=== PATIENT | female | born 1990 | race Caucasian/White ===

== ENCOUNTER 2016-10-28 22:14 | Emergency (ER) | payer BC ==
[2016-10-28 23:27] VITALS: BP 130/71; PULSE 91; O2SAT 97
[2016-10-28] MEDS ORDERED: KEFLEX 250 MG PO ONE (23:49)
[2016-10-28] MEDS ORDERED: KEFLEX 500 MG ONE (23:53)
--- NOTE | 2016-10-28 23:56 | ERPHSYRPT ---
- History of Present Illness Time Seen by Provider: 10/28/16 23:44 Source: patient Exam Limitations: no limitations Patient Subjective Stated Complaint: Pt here for right great toe pain since August. Sts she has seen her PCP for this multiple times, last visit was 3 weeks ago and was told they could not do anything for it. Pt sts that pain is still there 2/10 without shoe, increases while wearing shoe. Triage Nursing Assessment: Pt alert, oriented, answers all questions appropriately. Pt ambulatory to tx room, steady gait noted. Redness noted to nail bed at base of right great toe. Resps non-labored. Skin p/w/d. Physician History: PT STATES SHE HAS HAD REDNESS AND PAIN IN HER RIGHT LARGE TOE FOR THE PAST 2 MONTHS, WENT TO NURSE PRACTITIONER 3 WEEKS AGO WHO REMOVED A PIECE OF TOENAIL. PT HAS NOT BEEN ON ANY ORAL ANTIBIOTICS. PT DENIES FEVER, DENIES RECENT INJURY TO THE RIGHT FOOT, DENIES NUMBNESS OF THE RIGHT TOES. Allergies/Adverse Reactions: No Known Drug Allergies Allergy (Unverified 10/25/15 00:39) Home Medications: Lamotrigine 150 mg PO BID 04/03/15 [History] Hx Tetanus, Diphtheria Vaccination/Date Given: No Hx Influenza Vaccination/Date Given: Yes Hx Pneumococcal Vaccination/Date Given: No Immunizations Up to Date: Yes - Review of Systems Musculoskeletal: Other (RIGHT LARGE TOE REDNESS, PAIN AND SWELLING) - Past Medical History Pertinent Past Medical History: Yes Neurological History: Seizures Respiratory History: Asthma - Past Surgical History Past Surgical History: Yes Other Surgical History: LEFT ELBOW - Social History Smoking Status: Never smoker Exposure to second hand smoke: No Drug Use: none Patient Lives Alone: No - Female History Hx Last Menstrual Period: 10/12/16 - Nursing Vital Signs Nursing Vital Signs: Initial Vital Signs Temperature 97.3 F Temperature Source Oral Pulse Rate 91 Respiratory Rate 18 Blood Pressure [Right Arm] 130/71 Pain Intensity 2 - Physical Exam General Appearance: alert Hips Exam: right: normal range of motion Legs Exam: right leg: normal range of motion Knees Exam: right knee: normal range of motion Ankle Exam: right ankle: normal range of motion Foot Exam: right foot: normal range of motion, other (RIGHT LARGE TOE HAS AN ERYTHEMATOUS, MILDLY EDEMATOUS AND TENDER 1 CM DIAMETER NODULE AT THE BASE OF THE NAILBED WITHOUT EXUDATE.) Neuro/Tendon Exam: normal sensation Mental Status Exam: alert, cooperative SpO2 Interpretation: normal SpO2: 97 Oxygen Delivery: Room Air - Course Nursing assessment & vital signs reviewed: Yes Ordered Tests: Medication Summary Generic Name Dose Route Start Last Admin Trade Name Freq PRN Reason Stop Dose Admin Cephalexin HCl 500 mg 10/28/16 23:49 Keflex 250 Mg PO 10/28/16 23:50 STAT ONE - Departure Time of Disposition: 23:59 Departure Disposition: Home Clinical Impression: CELLULITIS OF THE RIGHT LARGE TOE Condition: Fair Critical Care Time: No Instructions: Cellulitis -- Adult Additional Instructions: FOLLOW UP WITH CREDIT AUTHORIZER OF CHOICE. SOAK RIGHT FOOT THREE TIMES EACH DAY IN EPSOM SALTS FOR 20 MINUTES FOR THE NEXT 10 DAYS. Prescriptions: Naproxen [Naprosyn] 500 mg PO Q12H PRN PRN #20 tablet PRN Reason: Pain Cephalexin Monohydrate [Keflex] 500 mg PO TID #30 capsule
== END 2016-10-29 00:11 | disposition home or self-care (01) ==
LOC: ED 22:14
DX: L03.031 Cellulitis of right toe (principal)
CPT/HCPCS: 99283; A9270-GY

== ENCOUNTER 2019-09-26 00:07 | Emergency (ER) | payer BC ==
[2019-09-26 01:17] LABS: Absolute Neutrophil Ct (ANC) 6.48 (1.4-6.9); BASOPHIL % 0.2 % (0.0-0.4); Basophil (Absolute #) 0.02 (0-0.4); Eosinophil % 1.3 % (0.00-5.0); Eosinophil (Absolute #) 0.12 (0-0.5); Hematocrit 39.1 % (35-47); Hemoglobin 12.5 gm/dl (12.0-16.0); Lymphocytes % 18.6 % (24.0-44.0); Mean Cell Volume 85.6 fl (78-100); Mean Corpuscular Hemoglobin 27.4 pg (26-32); Mean Platelet Volume 9.4 fl (7.5-11.0); Monocyte (Absolute #) 0.83 (0.0-1.3); Monocytes % 9.1 % (0.0-12.0); Neutrophil % 70.8 % (36.0-66.0); Platelet Count 314 K/mm3 (150-450); Red Blood Count 4.57 M/mm3 (4.1-5.4); Red Cell Distribution Width 14.1 % (11.5-14.0); White Blood Count 9.2 K/mm3 (4.0-10.5)
[2019-09-26] MEDS ORDERED: Sodium Chloride 0.9% 1000 ML 1,000 ML ONE (01:20)
[2019-09-26] MEDS ORDERED: TORAdol 30 mg Injection ONE (01:20)
[2019-09-26] MEDS: Sodium Chloride 0.9% 1000 ML 1,000 ML IV STA (01:21)
[2019-09-26] MEDS: TORAdol 30 mg Injection IV ONE (01:22)
[2019-09-26 01:28] LABS: ALBUMIN 3.9 g/dL (3.5-5.0); ALKALINE PHOSPHATASE 58 U/L (38-126); ANION GAP 7.5 MEQ/L (5-15); BLOOD UREA NITROGEN 12 mg/dL (7-17); CHLORIDE 104 mmol/L (98-107); Calcium 9.3 mg/dL (8.4-10.2); Carbon Dioxide 29 mmol/L (22-30); Creatinine 1 0.71 mg/dL (0.52-1.04); Glucose 110 mg/dL (74-106); Potassium 3.8 mmol/L (3.5-5.1); SGOT/AST 22 U/L (14-36); SGPT/ALT 10 U/L (0-35); SODIUM 137 mmol/L (137-145); Total Protein 7.5 g/dL (6.3-8.2)
[2019-09-26 01:29] LABS: Appearance SLIGHTLY CLOUDY (CLEAR); Bilirubin NEGATIVE (NEGATIVE); Blood LARGE Ery/ul (0-5); Epithelial Cells FEW /HPF (FEW); Glucose NEGATIVE (NEGATIVE); Ketones NEGATIVE (NEGATIVE); Leukocyte Esterase TRACE (NEGATIVE); Mucus SLIGHT /HPF (NEGATIVE); Nitrite NEGATIVE (NEGATIVE); Protein,Urine Dip NEGATIVE (Negative); RBC 26-50 /HPF (0-2); Specific Gravity 1.008 (1.005-1.025); Urobilinogen NEGATIVE mg/dL (0-1)
[2019-09-26] MEDS ORDERED: ROCEPHIN 1 Gm-D5w 50 ml Bag** 1 G/50 ML IVPB IV ONE (02:50)
[2019-09-26] MEDS: ROCEPHIN 1 Gm-D5w 50 ml Bag** 1 G/50 ML IVPB IV STA (02:51)
--- NOTE | 2019-09-26 02:56 | ERPHSYRPT ---
- History of Present Illness Time Seen by Provider: 09/26/19 00:30 Historian: patient Exam Limitations: no limitations Patient Subjective Stated Complaint: pt states that she has pain to flank area for the past month, pt states that she has been spotting for the past month, with spotting greater in the am pt states that the started in abdomen radiated to pelvis and to flank area, pt states that she has never had female issues before, pt states that she is under a lot of stress, pt states that she has had blood in her urine, pt states that she has an increase in gas, pt states that she went to the OB clinic today and had blood work, pt states she is scheduled for a pap , pt states she has take OTC gas medication, tylenol and omperazole, pt states that severe pain tonight Triage Nursing Assessment: pt ambulated into the er, pt is axo x3, vitals wnl, pt laughing and joking, pt states 10/10 pain to flank and abdomen, abdomen soft , hypoactive bowel sounds in all quads, tenderness present with palpation to rt flank area, urine clear and straw appereance Physician History: Patient is a 25-year-old female presents to our ED with complaints of right- sided flank pain. Patient also admits to experiencing vaginal bleeding. She followed up with her SHOW HOST physician today. She has a follow-up appointment scheduled for this coming . No associated hematuria no dysuria. No trauma. No fevers. No chest pain or shortness of breath. Symptoms are mild to moderate intensity. No specific worsening or improving factors. Patient is otherwise generally healthy. Mother at bedside. They voiced other complaints at this time. Patient declined pain medication. Patient is conversant well-appearing and does not appear to be in any distress. Timing/Duration: week(s) (1 month) Activities at Onset: none Quality: aching Abdominal Pain Onset Location: flank Pain Radiation: no radiation Severity of Pain-Max: moderate Severity of Pain-Current: moderate Modifying Factors: Improves With: nothing Associated Symptoms: No chest pain, No diarrhea, No fever/chills, No headache, No loss of appetite, No nausea, No shortness of breath Previous symptoms: no prior history Allergies/Adverse Reactions: No Known Drug Allergies Allergy (Verified 09/26/19 00:52) Home Medications: lamoTRIgine [Lamotrigine] 150 mg PO BID 04/03/15 [History] Albuterol Sulfate [Albuterol Sulfate Hfa] 1 puff IH Q4H PRN PRN 09/26/19 [ History] Norgestimate-Ethinyl Estradiol [Pee-Hd-Nldyhr Tablet] 1 tab PO DAILY 09/26/19 [ History] Hx Tetanus, Diphtheria Vaccination/Date Given: No Hx Influenza Vaccination/Date Given: Yes Hx Pneumococcal Vaccination/Date Given: No - Review of Systems Constitutional: No Fever, No Chills Eyes: No Symptoms Ears, Nose, & Throat: No Symptoms Respiratory: No Cough, No Dyspnea Cardiac: No Chest Pain, No Edema, No Syncope Abdominal/Gastrointestinal: No Symptoms, Abdominal Pain, No Nausea, No Vomiting , No Diarrhea Genitourinary Symptoms: No Symptoms, Dysuria Musculoskeletal: No Symptoms, No Back Pain, No Neck Pain Skin: No Symptoms, No Rash Neurological: No Symptoms, No Dizziness, No Focal Weakness, No Sensory Changes Psychological: No Symptoms Endocrine: No Symptoms Hematologic/Lymphatic: No Symptoms All Other Systems: Reviewed and Negative - Past Medical History Pertinent Past Medical History: Yes Neurological History: Seizures Respiratory History: Asthma - Past Surgical History Past Surgical History: Yes Musculoskeletal: Orthopedic Surgery Other Surgical History: LEFT ELBOW - Social History Smoking Status: Never smoker Exposure to second hand smoke: No Drug Use: none Patient Lives Alone: No - Female History Hx Now: No - Nursing Vital Signs Nursing Vital Signs: Initial Vital Signs Temperature 98.8 F 09/26/19 00:19 Pulse Rate 88 09/26/19 00:19 Respiratory Rate 16 09/26/19 00:19 Blood Pressure 110/87 09/26/19 00:19 O2 Sat by Pulse Oximetry 98 09/26/19 00:19 Pain Scale Pain Intensity 10 - Physical Exam General Appearance: no apparent distress, alert Eye Exam: PERRL/EOMI, eyes nml inspection Ears, Nose, Throat Exam: normal ENT inspection, pharynx normal, moist mucous membranes Neck Exam: normal inspection, non-tender, supple, full range of motion Respiratory Exam: normal breath sounds, lungs clear, No respiratory distress Cardiovascular Exam: regular rate/rhythm, normal heart sounds Gastrointestinal/Abdomen Exam: soft, tenderness, other (Mild right CVA tenderness to palpation.), No mass, No guarding Pelvic Exam: not done Back Exam: normal inspection, normal range of motion, No CVA tenderness, No vertebral tenderness Extremity Exam: normal inspection, normal range of motion, pelvis stable Neurologic Exam: alert, oriented x 3, cooperative, normal mood/affect, nml cerebellar function, sensation nml, No motor deficits Skin Exam: normal color, warm, dry SpO2 Interpretation: normal SpO2: 98 O2 Delivery: Room Air - Course Nursing assessment & vital signs reviewed: Yes - CT Exams Abdomen/Pelvis CT Interpretation: Tele-radiologist Report (Right adnexal complex cyst.) Ordered Tests: Active Orders 24 hr Category Date Time Status ABDOMEN AND PELVIS W/0 CONTRAS [CT] Stat Exams 09/26/19 01:01 Taken CBC W DIFF Stat Lab 09/26/19 00:12 Completed CMP Stat Lab 09/26/19 00:12 Completed CULTURE,URINE Stat Lab 09/26/19 01:00 Received HCG,QUALITATIVE URINE Stat Lab 09/26/19 01:00 Completed UA W/RFX UR CULTURE Stat Lab 09/26/19 01:00 Completed Medication Summary Generic Name Dose Route Start Last Admin Trade Name Freq PRN Reason Stop Dose Admin Ceftriaxone Sodium/Dextrose 1 g in 50 mls @ 100 mls/hr 09/26/19 02:46 Rocephin 1 Gm-D5w 50 Ml Bag IV 09/26/19 03:15 STAT STA Discontinued Medications Generic Name Dose Route Start Last Admin Trade Name Freq PRN Reason Stop Dose Admin Sodium Chloride 1,000 mls @ 999 mls/hr 09/26/19 01:02 09/26/19 02:29 Sodium Chloride 0.9% 1000 Ml IV 09/26/19 02:02 Infused .Q1H1M STA Infusion Sodium Chloride Confirm 09/26/19 01:20 Sodium Chloride 0.9% 1000 Ml Administered 09/26/19 01:21 Dose 1,000 mls @ ud .ROUTE .STK-MED ONE Ketorolac Tromethamine 30 mg 09/26/19 01:03 09/26/19 01:22 Toradol 30 Mg Injection IV 09/26/19 01:04 30 mg STAT ONE Administration Ketorolac Tromethamine Confirm 09/26/19 01:20 Toradol 30 Mg Injection Administered 09/26/19 01:21 Dose 30 mg .ROUTE .STK-MED ONE Lab/Rad Data: Laboratory Result Diagrams 09/26/19 00:12 09/26/19 00:12 Laboratory Results 09/26/19 09/26/19 09/26/19 Range/Units 01:00 01:00 00:12 WBC (4.0-10.5) K/mm3 RBC (4.1-5.4) M/mm3 Hgb (12.0-16.0) gm/dl Hct (35-47) % MCV (78-100) fl MCH (26-32) pg MCHC (32-36) g/dl RDW (11.5-14.0) % Plt Count (150-450) K/mm3 MPV (7.5-11.0) fl Gran % (36.0-66.0) % Eos # (Auto) (0-0.5) Absolute Lymphs (auto) (1.0-4.6) Absolute Monos (auto) (0.0-1.3) Lymphocytes % (24.0-44.0) % Monocytes % (0.0-12.0) % Eosinophils % (0.00-5.0) % Basophils % (0.0-0.4) % Absolute Granulocytes (1.4-6.9) Basophils # (0-0.4) Sodium 137 (137-145) mmol/L Potassium 3.8 (3.5-5.1) mmol/L Chloride 104 (98-107) mmol/L Carbon Dioxide 29 (22-30) mmol/L Anion Gap 7.5 (5-15) MEQ/L BUN 12 (7-17) mg/dL Creatinine 0.71 (0.52-1.04) mg/dL Estimated GFR > 60.0 ML/MIN Glucose 110 H (74-106) mg/dL Calcium 9.3 (8.4-10.2) mg/dL Total Bilirubin 0.30 (0.2-1.3) mg/dL AST 22 (14-36) U/L ALT 10 (0-35) U/L Alkaline Phosphatase 58 (38-126) U/L Serum Total Protein 7.5 (6.3-8.2) g/dL Albumin 3.9 (3.5-5.0) g/dL Urine Color YELLOW (YELLOW) Urine Appearance SLIGHTLY CLOUDY (CLEAR) Urine pH 6.0 (5-6) Ur Specific [place]ix[place] 1.008 (1.005-1.025) Urine Protein NEGATIVE (Negative) Urine Ketones NEGATIVE (NEGATIVE) Urine Blood LARGE (0-5) Aime/ul Urine Nitrite NEGATIVE (NEGATIVE) Urine Bilirubin NEGATIVE (NEGATIVE) Urine Urobilinogen NEGATIVE (0-1) mg/dL Ur Leukocyte Esterase TRACE (NEGATIVE) Urine WBC (Auto) 6-10 (0-5) /HPF Urine RBC (Auto) 26-50 (0-2) /HPF U Epithel Cells (Auto) FEW (FEW) /HPF Urine Mucus (Auto) SLIGHT (NEGATIVE) /HPF Urine Culture Reflexed YES (NO) Urine Glucose NEGATIVE (NEGATIVE) mg/dL Urine HCG, Qual NEGATIVE (Negative) 09/26/19 Range/Units 00:12 WBC 9.2 (4.0-10.5) K/mm3 RBC 4.57 (4.1-5.4) M/mm3 Hgb 12.5 (12.0-16.0) gm/dl Hct 39.1 (35-47) % MCV 85.6 (78-100) fl MCH 27.4 (26-32) pg MCHC 32.0 (32-36) g/dl RDW 14.1 H (11.5-14.0) % Plt Count 314 (150-450) K/mm3 MPV 9.4 (7.5-11.0) fl Gran % 70.8 H (36.0-66.0) % Eos # (Auto) 0.12 (0-0.5) Absolute Lymphs (auto) 1.70 (1.0-4.6) Absolute Monos (auto) 0.83 (0.0-1.3) Lymphocytes % 18.6 L (24.0-44.0) % Monocytes % 9.1 (0.0-12.0) % Eosinophils % 1.3 (0.00-5.0) % Basophils % 0.2 (0.0-0.4) % Absolute Granulocytes 6.48 (1.4-6.9) Basophils # 0.02 (0-0.4) Sodium (137-145) mmol/L Potassium (3.5-5.1) mmol/L Chloride (98-107) mmol/L Carbon Dioxide (22-30) mmol/L Anion Gap (5-15) MEQ/L BUN (7-17) mg/dL Creatinine (0.52-1.04) mg/dL Estimated GFR ML/MIN Glucose (74-106) mg/dL Calcium (8.4-10.2) mg/dL Total Bilirubin (0.2-1.3) mg/dL AST (14-36) U/L ALT (0-35) U/L Alkaline Phosphatase (38-126) U/L Serum Total Protein (6.3-8.2) g/dL Albumin (3.5-5.0) g/dL Urine Color (YELLOW) Urine Appearance (CLEAR) Urine pH (5-6) Ur Specific Bixby (1.005-1.025) Urine Protein (Negative) Urine Ketones (NEGATIVE) Urine Blood (0-5) Aime/ul Urine Nitrite (NEGATIVE) Urine Bilirubin (NEGATIVE) Urine Urobilinogen (0-1) mg/dL Ur Leukocyte Esterase (NEGATIVE) Urine WBC (Auto) (0-5) /HPF Urine RBC (Auto) (0-2) /HPF U Epithel Cells (Auto) (FEW) /HPF Urine Mucus (Auto) (NEGATIVE) /HPF Urine Culture Reflexed (NO) Urine Glucose (NEGATIVE) mg/dL Urine HCG, Qual (Negative) - Progress Progress Note: 09/26/19 02:57 Patient reassessed. Patient feels well. Patient declined pain medication. We discussed in great detail the finding of right complex ovarian cyst. They understand the importance of ultrasound follow-up. They have an appointment scheduled with patient's SHOW HOST physician on they will request an ultrasound at that time. - Departure Departure Disposition: Home Clinical Impression: UTI (urinary tract infection), Flank pain, Adnexal cyst Condition: Stable Critical Care Time: No Referrals: MERVIN FERRARO MD [Primary Care Provider] - Additional Instructions: Please follow-up with your SHOW HOST physician on as scheduled. Please be advised that you will require an ultrasound of your pelvis to further investigate a complex ovarian cyst observed on today's CAT scan. Discharge/Care Plan YOLANDA LYLE was seen on 09/26/19 in the Emergency Room. The patient was counseled regarding Diagnosis,Lab results, Imaging studies, need for follow up and when to return to the Emergency Room. Prescriptions given: Discharge Note I have spoken with the patient and/or caregivers. I have explained the patient' s condition, diagnosis and treatment plan based on the information available to me at this time. I have answered the patient's and/or caregiver's questions and addressed any concerns. The patient and/or caregivers have as good understanding of the patient's diagnosis, condition and treatment plan as can be expected at this point. The vital signs have been stable. The patient's condition is stable and appropriate for discharge from the emergency department. The patient will pursue further outpatient evaluation with the primary care physician or other designated or consulting physician as outlined in the discharge instructions. The patient and/or caregivers are agreeable to this plan of care and follow-up instructions have been explained in detail. The patient and/or caregivers have received these instruction. The patient/and or caregivers are aware that any significant change in condition or worsening of symptoms should prompt an immediate return to this or the closest emergency department or call 911. Prescriptions: Cephalexin Mh 500 mg [Keflex 500 mg] 500 mg PO BID 7 Days #14 capsule
[2019-09-26 03:21] VITALS: BP 118/88; PULSE 84; O2SAT 97
--- NOTE | 2019-09-26 09:18 | XRAY ---
Indication: Back pain right greater than left. Pelvic pain and cramping. Vaginal bleeding. Multiple contiguous axial images obtained through the abdomen and pelvis without contrast using renal stone protocol. Comparison: August 20, 2016. Lung bases are clear with new incidental left lower lobe calcified granuloma. Heart is not enlarged. No renal calculus or evidence for obstructive uropathy in either system. Noncontrasted stomach and bowel loops appear nonobstructed. Normal appendix. Right adnexa demonstrates new 5.8 x 2.7 cm cystic mass probably ovary in etiology. No free fluid/air. Remaining liver, gallbladder, pancreas, spleen, adrenal glands, kidneys, ureters, bladder, uterus, and aorta appear unremarkable for noncontrast exam. Osseous structures intact. Impression: 1. New right adnexa cystic mass as detailed probably ovary in etiology. Pelvic sonogram may yield further information. 2. Negative renal calculus or evidence for obstructive uropathy. 3. Remaining CT abdomen/pelvis without contrast exam is negative. Comment: Preliminary interpretation was made by [facility]. No critical discrepancy.
== END 2019-09-26 03:30 | disposition home or self-care (01) ==
LOC: ED 00:07
DX: N39.0 Urinary tract infection, site not specified (principal); R10.9 Unspecified abdominal pain; R19.09 Other intra-abdominal and pelvic swelling, mass and lump
CPT/HCPCS: 36415; 74176; 80053; 81001; 84703; 85025; 87086; 96360; 96365; 96374; 99284; J0696; J1885

== ENCOUNTER 2019-09-28 23:10 | Emergency (ER) | payer BC ==
--- NOTE | 2019-09-28 23:45 | ERPHSYRPT ---
- History of Present Illness Time Seen by Provider: 09/28/19 23:31 Source: patient, family Patient Subjective Stated Complaint: vaginal bleeding Triage Nursing Assessment: pt to ED c/o vaginal bleeding x approx 2 months. pt saw OBGYN today, attempted pap in office and pt states bleeding has increased since then. reports passing 1 clot. LMP August. reports stopped taking control approx 2 wks ago. pt denies being sexually active. pt states 2/10 abd pain, denies urinary sx and bowel sx. denies NV. states "it was just spotting for the last 2 mo until the test today." lung sounds clear and equal bilat. heart sounds clear. bowel sounds active in all 4 quads. A&Ox3. ambulatory to room and self assist to restroom. Physician History: 29 years old female presented in the ER with chief complaint of vaginal bleeding off and on for the last 2 months. Patient reports spotting and light bleeding needing 1 pad daily until today she was evaluated by her CHAIN HOOKER will try to get a Pap smear later on bleeding got a little worse than she passed 2 clots almost the size of a quarter coin. She is also complaining of mild discomfort suprapubically. She recently stopped taking her control pills as it did not seem to help her. Denies being sexually active or any chance of . Patient reports before that her cycles used to be pretty regular. Denies any vaginal discharge otherwise. Denies any urinary symptoms. Allergies/Adverse Reactions: No Known Drug Allergies Allergy (Verified 09/28/19 23:33) Home Medications: lamoTRIgine [Lamotrigine] 150 mg PO BID 04/03/15 [History] Albuterol Sulfate [Albuterol Sulfate Hfa] 1 puff IH Q4H PRN PRN 09/26/19 [ History] Hx Tetanus, Diphtheria Vaccination/Date Given: Yes Hx Influenza Vaccination/Date Given: Yes Hx Pneumococcal Vaccination/Date Given: No - Review of Systems Constitutional: No Symptoms Ears, Nose, & Throat: No Symptoms Respiratory: No Symptoms Cardiac: No Symptoms Abdominal/Gastrointestinal: No Symptoms Genitourinary Symptoms: Vaginal Bleeding Musculoskeletal: No Symptoms Skin: No Symptoms Neurological: No Symptoms Psychological: No Symptoms Endocrine: No Symptoms - Past Medical History Pertinent Past Medical History: Yes Neurological History: Seizures ENT History: No Pertinent History Cardiac History: No Pertinent History Respiratory History: Asthma Endocrine Medical History: No Pertinent History Musculoskeletal History: No Pertinent History GI Medical History: No Pertinent History History: No Pertinent History Psycho-Social History: No Pertinent History Female Reproductive Disorders: No Pertinent History - Past Surgical History Past Surgical History: Yes Neuro Surgical History: No Pertinent History Cardiac: No Pertinent History Respiratory: No Pertinent History Gastrointestinal: No Pertinent History Genitourinary: No Pertinent History Musculoskeletal: Orthopedic Surgery Female Surgical History: No Pertinent History Other Surgical History: LEFT ELBOW - Social History Smoking Status: Never smoker Exposure to second hand smoke: No Drug Use: none Patient Lives Alone: No - Female History Hx Last Menstrual Period: August Hx Now: No - Nursing Vital Signs Nursing Vital Signs: Initial Vital Signs Temperature 97.9 F 09/28/19 23:17 Pulse Rate 94 H 09/28/19 23:17 Respiratory Rate 18 09/28/19 23:17 Blood Pressure 146/107 09/28/19 23:17 O2 Sat by Pulse Oximetry 98 09/28/19 23:17 Pain Scale Pain Intensity 2 - Physical Exam General Appearance: no apparent distress Ears, Nose, Throat Exam: normal ENT inspection Neck Exam: normal inspection Respiratory Exam: normal breath sounds, lungs clear Cardiovascular Exam: regular rate/rhythm, normal heart sounds Gastrointestinal/Abdomen Exam: soft, normal bowel sounds, No tenderness, No distention, No mass Pelvic Exam: normal external exam, vaginal bleeding, other (Dark blood in the vaginal vault with no active spurting. No clots), No adnexal tenderness, No adnexal mass, No cervical motion tenderness, No vaginal discharge Back Exam: normal inspection Extremity Exam: normal inspection, normal range of motion Neurologic Exam: alert, oriented x 3, cooperative Skin Exam: normal color SpO2 Interpretation: normal SpO2: 98 O2 Delivery: Room Air Ordered Tests: Medication Summary Generic Name Dose Route Start Last Admin Trade Name Freq PRN Reason Stop Dose Admin Ketorolac Tromethamine 30 mg 09/29/19 00:20 Toradol 30 Mg Injection IM 09/29/19 00:21 STAT ONE - Progress Progress: improved Air Movement: good Progress Note: 09/29/19 00:21 29 years old is evaluated for vaginal bleeding. Pelvic exam I did not appreciate any blood clots but minimal blood. Dark-colored no fresh blood. I believe she has dysfunctional uterine bleeding and need further evaluation by WINDOWS DESKTOP ENGINEER. She is offered WINDOWS DESKTOP ENGINEER services here at [facility] but she does not want and would follow-up outpatient with her own WINDOWS DESKTOP ENGINEER In [place]. I have reviewed her lab work done day before yesterday and no acute abnormality. I do not think she needs another work-up. She is given Toradol here for pain and on reevaluation feeling better. Discussed signs symptoms of worsening needing return to ER which she seems understanding. Stable for discharge. - Departure Departure Disposition: Home Clinical Impression: DUB (dysfunctional uterine bleeding) Condition: Stable Critical Care Time: No Referrals: MERIVN FERRARO MD [Primary Care Provider] - Follow Up with PCP/3 days Instructions: Heavy Periods (DC) Additional Instructions: Drink plenty of fluids. Take Tylenol/ibuprofen as needed. Follow-up with your AMERICAN STUDIES PROFESSOR for reevaluation. Return to ER for any worsening.
[2019-09-29] MEDS ORDERED: TORAdol 30 mg Injection ONE (00:20)
[2019-09-29] MEDS ORDERED: TORAdol 30 mg Injection IM ONE (00:20)
[2019-09-29 00:26] VITALS: BP 119/81; PULSE 91; O2SAT 94
== END 2019-09-29 00:31 | disposition home or self-care (01) ==
LOC: ED 23:10
DX: N93.8 Other specified abnormal uterine and vaginal bleeding (principal)
CPT/HCPCS: 96372; 99283; J1885

== ENCOUNTER 2022-12-28 18:22 | Emergency (ER) | payer BC ==
[2022-12-28] MEDS ORDERED: MORPHINE SULFATE 4 MG INJ IM ONE (18:46)
--- NOTE | 2022-12-28 18:47 | ERPHSYRPT ---
- History of Present Illness Time Seen by Provider: 12/28/22 18:36 Source: patient Exam Limitations: no limitations Patient Subjective Stated Complaint: C/O Left ankle pain after a fall down her back steps at home just prior to arrival to the ER Triage Nursing Assessment: Patient arrived by ambulance with a splint to her left ankle. She is alert and oriented. Tearful. No SOB. CMS to toes on left foot WNL. Splint not removed for assessment. Physician History: 32 years old female presented in the ER after she slid on stairs leading to fall and bent her left ankle prior to arrival with inability to get up and ambulate. Moderate to severe sharp pain. Patient is brought in by EMS and Moe splint is placed in. No difficulty movements of toes. No injury anywhere else. Method of Injury: fell Occurred: just prior to arrival Quality: sharpness Severity of Pain-Max: severe Severity of Pain-Current: severe Lower Extremities Pain: ankle: left Modifying Factors: Improves With: immobilization. Worsens With: movement Associated Symptoms: unable to bear weight Allergies/Adverse Reactions: No Known Drug Allergies Allergy (Verified 12/28/22 18:23) Home Medications: lamoTRIgine [Lamotrigine] 150 mg PO BID 04/03/15 [History] Albuterol Sulfate [Albuterol Sulfate Hfa] 1 puff IH Q4H PRN PRN 09/26/19 [History] Hx Tetanus, Diphtheria Vaccination/Date Given: Yes Hx Influenza Vaccination/Date Given: No Hx Pneumococcal Vaccination/Date Given: No Immunizations Up to Date: Yes Travel Risk - International Travel Have you traveled outside of the country in past 3 weeks: No - Coronavirus Screening Are you exhibiting any of the following symptoms?: No Close contact with a COVID-19 positive Pt in past 14-21 Days: No - Vaccine Status Have you recieved a Covid-19 vaccination: No - Review of Systems Constitutional: No Symptoms Ears, Nose, & Throat: No Symptoms Respiratory: No Symptoms Cardiac: No Symptoms Musculoskeletal: Injury, Joint Pain Skin: No Symptoms Neurological: No Symptoms - Past Medical History Pertinent Past Medical History: Yes Neurological History: Seizures ENT History: No Pertinent History Cardiac History: No Pertinent History Respiratory History: Asthma Endocrine Medical History: No Pertinent History Musculoskeletal History: No Pertinent History GI Medical History: No Pertinent History History: No Pertinent History Psycho-Social History: No Pertinent History Female Reproductive Disorders: No Pertinent History - Past Surgical History Past Surgical History: Yes Neuro Surgical History: No Pertinent History Cardiac: No Pertinent History Respiratory: No Pertinent History Gastrointestinal: No Pertinent History Genitourinary: No Pertinent History Musculoskeletal: Orthopedic Surgery Female Surgical History: No Pertinent History Other Surgical History: LEFT ELBOW - Social History Smoking Status: Never smoker Exposure to second hand smoke: No Drug Use: none Patient Lives Alone: No - Female History Hx Last Menstrual Period: 12/23/22 Hx Now: No - Nursing Vital Signs Nursing Vital Signs: Initial Vital Signs Temperature 97.7 F 12/28/22 18:26 Pulse Rate 82 12/28/22 18:26 Respiratory Rate 18 12/28/22 18:26 Blood Pressure 110/85 12/28/22 18:26 O2 Sat by Pulse Oximetry 99 12/28/22 18:26 Pain Scale Pain Intensity 5 - Physical Exam General Appearance: no apparent distress, alert Neck Exam: normal inspection, full range of motion Cardiovascular/Respiratory Exam: normal breath sounds, regular rate/rhythm Back Exam: normal inspection, normal range of motion Legs Exam: bilateral leg: non-tender, normal inspection, normal range of motion, no evidence of injury Knees Exam: bilateral knee: non-tender, normal inspection, normal range of motion, no evidence of injury Ankle Exam: right ankle: non-tender, normal inspection, normal range of motion, no evidence of injury, left ankle: bone tenderness (Lateral malleolus/distal anterior tibia), limited range of motion, pain, soft tissue tenderness Foot Exam: bilateral foot: non-tender, normal inspection, normal range of motion, no evidence of injury Neuro/Tendon Exam: normal sensation, normal motor functions Mental Status Exam: alert, oriented x 3, cooperative Skin Exam: normal color SpO2 Interpretation: normal SpO2: 99 O2 Delivery: Room Air Ordered Tests: Active Orders 24 hr Category Date Time Status ANKLE (3 VIEWS) Stat Exams 12/28/22 18:39 Completed Medication Summary Discontinued Medications Generic Name Dose Route Start Last Admin Trade Name Freq PRN Reason Stop Dose Admin Morphine Sulfate 4 mg 12/28/22 18:46 12/28/22 18:57 Morphine Sulfate 4 Mg/Ml Injection IM 12/28/22 18:47 4 mg STAT ONE Administration Morphine Sulfate Confirm 12/28/22 18:52 Morphine Sulfate 4 Mg/Ml Injection Administered 12/28/22 18:53 Dose 4 mg .ROUTE .STK-MED ONE - Progress Progress: improved Progress Note: 12/28/22 19:34 32 years old female presented in the ER after she slid on stairs leading to fall and bent her left ankle prior to arrival with inability to get up and ambulate. Moderate to severe sharp pain. Patient is brought in by EMS and Moe splint is placed in. No difficulty movements of toes. No injury anywhere else. 12/28/22 20:26 She is given symptomatic treatment for pain, on reevaluation feeling better. X- rays negative for fracture dislocation, I believe patient has ankle sprain, placed in Aircast, crutches, NSAIDs and outpatient orthopedic follow-up. Counseled pt/family regarding: diagnosis, need for follow-up, rad results Medical Desision Making - Independent Historian Additional History obtained from: Mother - Diagnostic Testing Diagnostic test were ordered, analyzed, and reviewed by me: Yes Radiological Interpretation: Reviewed by me - Risk of complications Low Risk: Low risk of morbidity from additional dx testing or treatment - Departure Departure Disposition: Home Clinical Impression: Ankle sprain Condition: Stable Critical Care Time: No Referrals: MERVIN FERRARO MD [Primary Care Provider] - Follow up with PCP 1 day ORTHO - MEENA ELLISON NP [NON-STAFF PHY W/O PRIVILEGES] - Follow up/PCP as directed (1-2 days for reevaluation) Instructions: Ankle Sprain (DC), Ankle Fracture (DC) Additional Instructions: Keep it elevated, intermittent ice application, take Tylenol/ibuprofen as needed for pain. Follow-up with primary care and orthopedic surgery for reevaluation. Return to ER for any worsening. Prescriptions: Ibuprofen 600 mg PO Q6HPRN PRN 10 Days #20 tablet PRN Reason: Pain
[2022-12-28] MEDS ORDERED: MORPHINE SULFATE 4 MG INJ ONE (18:52)
--- NOTE | 2022-12-28 19:59 | XRAY ---
CLINICAL HISTORY:Fall with pain following fall; COMPARISON:None; TECHNIQUES:X-ray of left ankle-AP, lateral and oblique views; FINDINGS: Articular surface and joint space of left ankle joint appear normal. No acute fracture or dislocation is identified. Ankle mortise is intact. No sclerotic or lytic bony. Mild soft tissue swelling noted around the ankle joint. Plantar calcaneal spur seen. Enthesophyte seen at the insertion of the Achilles tendon. IMPRESSION: 1. No acute bony abnormality/injury is identified. 2. Mild soft tissue swelling noted around the ankle joint. 3. Plantar calcaneal spur noted. 4. Enthesophyte seen at the insertion of Achilles tendon. DISCLAIMER: A subtle bone abnormality or fracture may not be readily apparent on x-rays, thus clinical correlation and further imaging including follow up CT, MRI, or follow up x-rays are advised as needed. Electronically Signed by: Quiana You MD. (12/28/2022 18:56:26 [facility]OSS)
[2022-12-28 20:02] VITALS: BP 111/88; PULSE 89
[2022-12-28 20:28] VITALS: O2SAT 99
== END 2022-12-28 20:55 | disposition home or self-care (01) ==
LOC: ED 18:22
DX: S93.402A Sprain of unspecified ligament of left ankle, initial encounter (principal); W10.8XXA Fall (on) (from) other stairs and steps, initial encounter; Y92.007 Garden or yard of unspecified non-institutional (private) residence as the place of occurrence of the external cause; Z79.899 Other long term (current) drug therapy; Z28.310 Unvaccinated for COVID-19
CPT/HCPCS: 73610; 96372; 99283; J2270; L4386

== ENCOUNTER 2023-10-02 19:36 | Emergency (ER) | payer BC ==
[2023-10-02 20:02] VITALS: TEMP 97.6
[2023-10-02 20:42] LABS: Absolute Neutrophil Ct (ANC) 5.05 x10^3/uL (1.4-6.9); BASOPHIL % 0.4 % (0.0-0.4); Basophil (Absolute #) 0.03 x10^3/uL (0-0.4); Eosinophil % 2.7 % (0.00-5.0); Hematocrit 43.8 % (35-47); Hemoglobin 13.6 g/dL (12.0-16.0); IMMATURE GRAN # 0.03 x10^3u/L (0.00-0.03); IMMATURE GRAN % 0.4 % (0.00-0.4); Lymphocyte (Absolute #) 1.67 x10^3/uL (1.0-4.6); Lymphocytes % 22.2 % (24.0-44.0); Mean Cell Volume 85.5 fL (78-100); Mean Corpuscular Hemoglobin 26.6 pg (26-32); Mean Corpuscular Hgb Concent. 31.1 g/dL (32-36); Mean Platelet Volume 9.8 fL (7.5-11.0); Monocyte (Absolute #) 0.53 x10^3/uL (0.0-1.3); Monocytes % 7.1 % (0.0-12.0); Neutrophil % 67.2 % (36.0-66.0); Platelet Count 385 x10^3/uL (150-450); Red Blood Count 5.12 x10^6/uL (4.1-5.4); Red Cell Distribution Width 13.7 % (11.5-14.0); White Blood Count 7.5 x10^3/uL (4.0-10.5)
[2023-10-02] MEDS ORDERED: Zofran 4 MG/2 ML VIAL ONE (20:48)
[2023-10-02] MEDS ORDERED: TORAdol 30 mg Injection ONE (20:48)
[2023-10-02] MEDS ORDERED: Sodium Chloride 0.9% 1000 ML 1,000 ML ONE (20:48)
[2023-10-02] MEDS ORDERED: PROTONIX 40 MG IV IV ONE (20:48)
[2023-10-02] MEDS: Sodium Chloride 0.9% 1000 ML 1,000 ML IV STA (20:50)
[2023-10-02] MEDS: Zofran 4 MG/2 ML VIAL IV ONE (20:53)
[2023-10-02] MEDS: TORAdol 30 mg Injection IV ONE (20:54)
[2023-10-02 20:55] LABS: ALBUMIN 4.3 g/dL (3.5-5.0); ANION GAP 13.4 MEQ/L (5-15); BILIRUBIN,TOTAL 0.3 mg/dL (0.2-1.3); Calcium 9.8 mg/dL (8.4-10.2); Creatinine 1 0.79 mg/dL (0.52-1.04); EST GLOMERULAR FILTRATION RATE 101.2 ML/MIN; Potassium 4.2 mmol/L (3.5-5.1); Total Protein 7.3 g/dL (6.3-8.2)
[2023-10-02] MEDS: PROTONIX 40 MG IV IV ONE (20:55)
[2023-10-02 21:02] VITALS: RESP 16; O2SAT 99
[2023-10-02 21:38] LABS: HCG SERUM TEST NEGATIVE (NEGATIVE)
--- NOTE | 2023-10-02 22:26 | XRAY ---
CLINICAL HISTORY: upper abd pain TECHNIQUE: Multiple contiguous axial images were obtained from the level of diaphragm to the pubis symphysis. This study was acquired after the IV administration of iodinated contrast material, given the patients indications for the examination. If IV contrast material had not been administered, the likelihood of detecting abnormalities relevant to the patients condition would have been substantially decreased. Coronal and sagittal reformatted images were generated and reviewed to improve anatomic localization and optimize lesion detection. CT scan was performed according to ALARA (as low as reasonable achievable). COMPARISON: None FINDINGS: The visualized lung bases are clear. ABDOMEN/PELVIS: The liver is normal in size and attenuation. No focal liver lesions are seen. There is no intra or extrahepatic biliary ductal dilatation. Hepatic vasculature is patent. The gallbladder is unremarkable. The spleen, pancreas, and adrenal glands are unremarkable.A ssplenunculus is noted adjacent to the spleen. The kidneys are normal in size and attenuation. There is no hydronephrosis or perinephric fat stranding. No renal calculi or renal masses are identified. The ureters are normal in caliber and no ureteral calculi are seen. The bladder is normal in contour. No evidence of focal or diffuse bowel wall thickening or evidence of bowel obstruction is seen. The appendix is visualized in the right lower quadrant and appears within normal limits. No adenopathy or fluid collections are seen. The aorta is normal in caliber. No aggressive appearing osseous lesions are identified. IMPRESSION: 1. No acute intraabdominal pathology is identified. Electronically Signed by: Dr. Dexter Goodson MD. (10/02/2023 22:21:25 EST)
[2023-10-02 22:55] LABS: HCG URINE TEST NEGATIVE (NEGATIVE)
[2023-10-02 23:01] LABS: ADD URINE CULTURE? NO (NO); Appearance Clear (Clear); Bacteria None Seen /HPF (None Seen); Bilirubin Negative (Negative); Blood Negative (Negative); Epithelial Cells None Seen /HPF (None Seen); Glucose, Urine Negative (Negative); Hyaline Casts NONE SEEN /LPF (0-2); Ketones Negative (Negative); Leukocyte Esterase Negative (Negative); Nitrite Negative (Negative); Ph 5.5 (4.6-8.0); Protein,Urine Dip Negative (Negative); RBC 0-2 /HPF (0-5); Specific Gravity >=1.030 (1.005-1.030); Urobilinogen 0.2 mg/dL (0.2); WBC 0-2 /HPF (0-5)
--- NOTE | 2023-10-02 23:08 | ERPHSYRPT ---
- History of Present Illness Time Seen by Provider: 10/02/23 20:00 Historian: patient Exam Limitations: no limitations Patient Subjective Stated Complaint: rt upper abd pain since Wednesday, got worse today Triage Nursing Assessment: Pt ambulated into Er without diff, alert and oriented x4. Pt c/o rt upper quad pain since wednesday, off and on. Describes pain as sharp at times and achy at other times. Abd lg, soft with active bs x4 quad, tender on palpation to middle abd region. LBM today, having some diarrhea, nausea but denies vomiting. Pt also has Gerd but only takes natural things for it per pt. Physician History: 33 years old female presented in the ER with chief complaint of abdominal pain off and on for the last 5 days it got worse today. Patient reports associated nausea and 2-3 episodes of loose stool today as well. Patient reports her pain got really worse after eating chicken almost an hour ago and currently rates 9/10 intensity more in the upper abdomen and under the right side. Patient reports it happens in waves and starts getting better on its own but today it was not going away. No fever or chills reported. Does report history of acid reflux but not taking any medications. Denies any UTI symptoms. Allergies/Adverse Reactions: No Known Drug Allergies Allergy (Verified 10/02/23 20:11) Home Medications: lamoTRIgine [Lamotrigine] 150 mg PO BID 04/03/15 [History] Epinastine HCl 2 drops OP BID PRN PRN 10/02/23 [History] Hx Tetanus, Diphtheria Vaccination/Date Given: Yes Hx Influenza Vaccination/Date Given: No Hx Pneumococcal Vaccination/Date Given: No Travel Risk - International Travel Have you traveled outside of the country in past 3 weeks: No - Coronavirus Screening Are you exhibiting any of the following symptoms?: No Close contact with a COVID-19 positive Pt in past 14-21 Days: No - Vaccine Status Have you recieved a Covid-19 vaccination: No - Review of Systems Constitutional: No Symptoms Eyes: No Symptoms Ears, Nose, & Throat: No Symptoms Respiratory: No Symptoms Cardiac: No Symptoms Abdominal/Gastrointestinal: Abdominal Pain, Nausea, Diarrhea Genitourinary Symptoms: No Symptoms Musculoskeletal: No Symptoms Skin: No Symptoms Neurological: No Symptoms Psychological: No Symptoms Hematologic/Lymphatic: No Symptoms - Past Medical History Pertinent Past Medical History: Yes Neurological History: Seizures ENT History: No Pertinent History Cardiac History: No Pertinent History Respiratory History: Asthma Endocrine Medical History: No Pertinent History Musculoskeletal History: No Pertinent History GI Medical History: GERD History: No Pertinent History Psycho-Social History: No Pertinent History Female Reproductive Disorders: Other Other Medical History: ovarian cysts - Past Surgical History Past Surgical History: Yes Neuro Surgical History: No Pertinent History Cardiac: No Pertinent History Respiratory: No Pertinent History Gastrointestinal: No Pertinent History Genitourinary: No Pertinent History Musculoskeletal: Orthopedic Surgery Female Surgical History: Other Other Surgical History: LEFT ELBOW, 1 ovarian cyst removal, lesions removed from back - Social History Smoking Status: Never smoker Exposure to second hand smoke: Yes Drug Use: none Patient Lives Alone: No - Female History Hx Last Menstrual Period: 09/25/23 Hx Now: (unkn) - Nursing Vital Signs Nursing Vital Signs: Initial Vital Signs Blood Pressure 161/103 10/02/23 20:00 O2 Sat by Pulse Oximetry 99 10/02/23 20:00 Pain Scale Pain Intensity 0 - Physical Exam General Appearance: no apparent distress, alert Eye Exam: PERRL/EOMI Ears, Nose, Throat Exam: normal ENT inspection, pharynx normal Neck Exam: normal inspection, non-tender, supple, full range of motion Respiratory Exam: normal breath sounds, lungs clear Cardiovascular Exam: regular rate/rhythm, normal heart sounds Gastrointestinal/Abdomen Exam: soft, normal bowel sounds, tenderness (Epigastrium moderate tenderness, mild tenderness right upper quadrant and periumbilical area.) Back Exam: normal inspection, No CVA tenderness Extremity Exam: normal inspection, normal range of motion Neurologic Exam: alert, oriented x 3, cooperative Skin Exam: normal color SpO2 Interpretation: normal SpO2: 99 O2 Delivery: Room Air Ordered Tests: Active Orders 24 hr Category Date Time Status IV Insertion STAT Care 10/02/23 20:21 Completed NPO (ED) STAT Care 10/02/23 20:21 Completed ABDOMEN AND PELVIS W CONTRAST [CT] Stat Exams 10/02/23 20:21 Completed CBC W DIFF Stat Lab 10/02/23 20:39 Completed CMP Stat Lab 10/02/23 20:39 Completed HCG QUALITATIVE, SERUM Stat Lab 10/02/23 Completed HCG QUALITATIVE, URINE Stat Lab 10/02/23 22:52 Completed LIPASE Stat Lab 10/02/23 20:39 Completed UA W/RFX UR CULTURE Stat Lab 10/02/23 22:51 Completed Medication Summary Discontinued Medications Generic Name Dose Route Start Last Admin Trade Name Mundo PRN Reason Stop Dose Admin Sodium Chloride 1,000 mls @ 999 mls/hr 10/02/23 20:21 10/02/23 20:50 Sodium Chloride 0.9% 1000 Ml IV 10/02/23 21:21 999 mls/hr .Q1H1M STA Administration Sodium Chloride Confirm 10/02/23 20:48 Sodium Chloride 0.9% 1000 Ml Administered 10/02/23 20:49 Dose 1,000 mls @ ud .ROUTE .STK-MED ONE Ketorolac Tromethamine 30 mg 10/02/23 20:21 10/02/23 20:54 Ketorolac Tromethamine 30 Mg/Ml Inj IV 10/02/23 20:22 30 mg STAT ONE Administration Ketorolac Tromethamine Confirm 10/02/23 20:48 Ketorolac Tromethamine 30 Mg/Ml Inj Administered 10/02/23 20:49 Dose 30 mg .ROUTE .STK-MED ONE Ondansetron HCl 4 mg 10/02/23 20:21 10/02/23 20:53 Ondansetron Hcl 4 Mg/2 Ml Vial IV 10/02/23 20:22 4 mg STAT ONE Administration Ondansetron HCl Confirm 10/02/23 20:48 Ondansetron Hcl 4 Mg/2 Ml Vial Administered 10/02/23 20:49 Dose 4 mg .ROUTE .STK-MED ONE Pantoprazole Sodium 40 mg 10/02/23 20:21 10/02/23 20:55 Pantoprazole 40 Mg Vial IV 10/02/23 20:22 40 mg STAT ONE Administration Pantoprazole Sodium Confirm 10/02/23 20:48 Pantoprazole 40 Mg Vial Administered 10/02/23 20:49 Dose 40 mg IV .STK-MED ONE Lab/Rad Data: Laboratory Result Diagrams 10/02/23 20:39 10/02/23 20:39 Laboratory Results 10/02/23 10/02/23 10/02/23 Range/Units Unknown 22:52 22:51 WBC (4.0-10.5) x10^3/uL RBC (4.1-5.4) x10^6/uL Hgb (12.0-16.0) g/dL Hct (35-47) % MCV (78-100) fL MCH (26-32) pg MCHC (32-36) g/dL RDW (11.5-14.0) % Plt Count (150-450) x10^3/uL MPV (7.5-11.0) fL Gran % (36.0-66.0) % Immature Gran % (Auto) (0.00-0.4) % Nucleat RBC Rel Count (0.00-0.1) % Eos # (Auto) (0-0.5) x10^3/uL Immature Gran # (Auto) (0.00-0.03) x10^3u/L Absolute Lymphs (auto) (1.0-4.6) x10^3/uL Absolute Monos (auto) (0.0-1.3) x10^3/uL Absolute Nucleated RBC (0.00-0.01) x10^3u/L Lymphocytes % (24.0-44.0) % Monocytes % (0.0-12.0) % Eosinophils % (0.00-5.0) % Basophils % (0.0-0.4) % Absolute Granulocytes (1.4-6.9) x10^3/uL Basophils # (0-0.4) x10^3/uL Sodium (137-145) mmol/L Potassium (3.5-5.1) mmol/L Chloride (98-107) mmol/L Carbon Dioxide (22-30) mmol/L Anion Gap (5-15) MEQ/L BUN (7-17) mg/dL Creatinine (0.52-1.04) mg/dL Estimated GFR ML/MIN Glucose (74-106) mg/dL Calcium (8.4-10.2) mg/dL Total Bilirubin (0.2-1.3) mg/dL AST (14-36) U/L ALT (0-35) U/L Alkaline Phosphatase (38-126) U/L Serum Total Protein (6.3-8.2) g/dL Albumin (3.5-5.0) g/dL Lipase (23-300) U/L Serum HCG, Qual NEGATIVE (NEGATIVE) Urine Color Yellow (Yellow) Urine Appearance Clear (Clear) Urine pH 5.5 (4.6-8.0) Ur Specific [place] >=1.030 A (1.005-1.030) Urine Protein Negative (Negative) Urine Glucose (UA) Negative (Negative) mg/dL Urine Ketones Negative (Negative) Urine Blood Negative (Negative) Urine Nitrite Negative (Negative) Urine Bilirubin Negative (Negative) Urine Urobilinogen 0.2 (0.2) mg/dL Ur Leukocyte Esterase Negative (Negative) U Hyaline Cast (Auto) NONE SEEN (0-2) /LPF Urine Microscopic RBC 0-2 (0-5) /HPF Urine Microscopic WBC 0-2 (0-5) /HPF Ur Epithelial Cells None Seen (None Seen) /HPF Urine Bacteria None Seen (None Seen) /HPF Urine Culture Reflexed NO (NO) Urine HCG, Qual NEGATIVE (NEGATIVE) 10/02/23 10/02/23 Range/Units 20:39 20:39 WBC 7.5 (4.0-10.5) x10^3/uL RBC 5.12 (4.1-5.4) x10^6/uL Hgb 13.6 (12.0-16.0) g/dL Hct 43.8 (35-47) % MCV 85.5 (78-100) fL MCH 26.6 (26-32) pg MCHC 31.1 L (32-36) g/dL RDW 13.7 (11.5-14.0) % Plt Count 385 (150-450) x10^3/uL MPV 9.8 (7.5-11.0) fL Gran % 67.2 H (36.0-66.0) % Immature Gran % (Auto) 0.4 (0.00-0.4) % Nucleat RBC Rel Count 0.0 (0.00-0.1) % Eos # (Auto) 0.20 (0-0.5) x10^3/uL Immature Gran # (Auto) 0.03 (0.00-0.03) x10^3u/L Absolute Lymphs (auto) 1.67 (1.0-4.6) x10^3/uL Absolute Monos (auto) 0.53 (0.0-1.3) x10^3/uL Absolute Nucleated RBC 0.00 (0.00-0.01) x10^3u/L Lymphocytes % 22.2 L (24.0-44.0) % Monocytes % 7.1 (0.0-12.0) % Eosinophils % 2.7 (0.00-5.0) % Basophils % 0.4 (0.0-0.4) % Absolute Granulocytes 5.05 (1.4-6.9) x10^3/uL Basophils # 0.03 (0-0.4) x10^3/uL Sodium 142 (137-145) mmol/L Potassium 4.2 (3.5-5.1) mmol/L Chloride 107 (98-107) mmol/L Carbon Dioxide 26 (22-30) mmol/L Anion Gap 13.4 (5-15) MEQ/L BUN 15 (7-17) mg/dL Creatinine 0.79 (0.52-1.04) mg/dL Estimated GFR 101.2 ML/MIN Glucose 102 (74-106) mg/dL Calcium 9.8 (8.4-10.2) mg/dL Total Bilirubin 0.30 (0.2-1.3) mg/dL AST 34 (14-36) U/L ALT 21 (0-35) U/L Alkaline Phosphatase 69 (38-126) U/L Serum Total Protein 7.3 (6.3-8.2) g/dL Albumin 4.3 (3.5-5.0) g/dL Lipase 90 (23-300) U/L Serum HCG, Qual (NEGATIVE) Urine Color (Yellow) Urine Appearance (Clear) Urine pH (4.6-8.0) Ur Specific [place] (1.005-1.030) Urine Protein (Negative) Urine Glucose (UA) (Negative) mg/dL Urine Ketones (Negative) Urine Blood (Negative) Urine Nitrite (Negative) Urine Bilirubin (Negative) Urine Urobilinogen (0.2) mg/dL Ur Leukocyte Esterase (Negative) U Hyaline Cast (Auto) (0-2) /LPF Urine Microscopic RBC (0-5) /HPF Urine Microscopic WBC (0-5) /HPF Ur Epithelial Cells (None Seen) /HPF Urine Bacteria (None Seen) /HPF Urine Culture Reflexed (NO) Urine HCG, Qual (NEGATIVE) - Progress Progress: improved Progress Note: 10/02/23 23:04 33 years old is evaluated for abdominal pain. She is not in any distress. Patient has tenderness more in the upper abdomen especially in the epigastric area. I have given her fluids along with Toradol and Protonix, on reevaluation her pain is almost completely resolved. Repeated abdominal evaluation is nonsurgical. Workup showed normal white count, fairly unremarkable chemistries including lipase and no UTI. CT abdomen pelvis with contrast is negative for any acute abdominal finding. No cholecystitis, pancreatitis, colitis obstruction or any other active process. I believe patient has GERD/acid peptic disease which gets worse with greasy food. Less likely biliary colic. I will start her on Protonix. Recommended taking Tylenol and not taking any NSAIDs and outpatient follow-up. Discussed signs symptoms of worsening needing return to ER which she seems understanding. Stable for discharge. Counseled pt/family regarding: lab results, diagnosis, need for follow-up, rad results Medical Desision Making - Diagnostic Testing Diagnostic test were ordered, analyzed, and reviewed by me: Yes Radiological Interpretation: Reviewed by me - Risk of complications The pt has a mod risk of morbidity or mortality based on: Need for prescription drug management - Departure Departure Disposition: Home Clinical Impression: Upper abdominal pain, GERD (gastroesophageal reflux disease) Condition: Stable Critical Care Time: No Referrals: MERVIN FERRARO MD [Primary Care Provider] - Follow up with PCP 2 days Instructions: Acid Reflux and GERD in Adults (DC), Severe Abdominal Pain, Adult (DC) Additional Instructions: Take Tylenol as needed. Try not to take ibuprofen/Aleve or any other NSAIDs. Drink plenty of fluids. Follow-up with primary care for reevaluation. Return to ER for intractable pain/nausea vomiting/fever chills etc. Prescriptions: PANTOPRAZOLE 40 mg Tablet [Protonix 40MG Tablet] 40 mg PO QAM #30 tab
[2023-10-02 23:16] VITALS: BP 140/76; PULSE 84
== END 2023-10-02 23:19 | disposition home or self-care (01) ==
LOC: ED 19:36
DX: K21.9 Gastro-esophageal reflux disease without esophagitis (principal); R10.11 Right upper quadrant pain; R11.0 Nausea; R19.7 Diarrhea, unspecified; Z79.899 Other long term (current) drug therapy; Z28.310 Unvaccinated for COVID-19
CPT/HCPCS: 36000; 36415; 74177; 80053; 81001; 81025; 83690; 84703; 85025; 96374; 96375; 99284; J1885; J2405

== ENCOUNTER 2024-08-03 12:00 | Emergency (ER) | payer BC ==
[2024-08-03 12:17] VITALS: RESP 17; TEMP 98.5; O2SAT 99
--- NOTE | 2024-08-03 12:38 | ERPHSYRPT ---
- History of Present Illness Time Seen by Provider: 08/03/24 12:07 Source: patient Exam Limitations: no limitations Patient Subjective Stated Complaint: Pt reports she was at work "working the line" when she suddenly felt dizzy. States blood pressure was checked at work an d was 208 systolic, upon ambulance arrival bp was 149/90 per EMS. Pt denies any pain. Triage Nursing Assessment: Pt alert and oriented x3. Respirations easy/nonlabored. Skin w/p/d. Arrived via ambulance, transferred from EMS cot to ED cot without difficulty. PERRLA. Pt does not appear to be in any distress. Timing/Duration: today Severity: mild Associated Symptoms: denies symptoms Allergies/Adverse Reactions: No Known Drug Allergies Allergy (Verified 08/03/24 12:03) Home Medications: lamoTRIgine [Lamotrigine] 150 mg PO BID 04/03/15 [History] Epinastine HCl 2 drops OP BID PRN PRN 10/02/23 [History] Hx Tetanus, Diphtheria Vaccination/Date Given: Yes Hx Influenza Vaccination/Date Given: No Hx Pneumococcal Vaccination/Date Given: No Travel Risk - International Travel Have you traveled outside of the country in past 3 weeks: No - Emerging Infectious Disease Are you exhibiting symptoms associated with any current EIDs: No - Review of Systems Constitutional: No Symptoms Eyes: No Symptoms Ears, Nose, & Throat: No Symptoms Respiratory: No Symptoms Cardiac: No Symptoms Abdominal/Gastrointestinal: No Symptoms Genitourinary Symptoms: No Symptoms Musculoskeletal: No Symptoms Neurological: Dizziness (patient states that she was dizzy and checked her blood pressure and it was high so she called the paramedics to bring her in for evaluation ) - Past Medical History Pertinent Past Medical History: Yes Neurological History: Seizures ENT History: No Pertinent History Cardiac History: No Pertinent History Respiratory History: Asthma Endocrine Medical History: No Pertinent History Musculoskeletal History: No Pertinent History GI Medical History: GERD History: No Pertinent History Psycho-Social History: No Pertinent History Female Reproductive Disorders: Other Other Medical History: ovarian cysts - Past Surgical History Past Surgical History: Yes Neuro Surgical History: No Pertinent History Cardiac: No Pertinent History Respiratory: No Pertinent History Gastrointestinal: No Pertinent History Genitourinary: No Pertinent History Musculoskeletal: Orthopedic Surgery Female Surgical History: Other Other Surgical History: LEFT ELBOW, 1 ovarian cyst removal, lesions removed from back - Female History Hx Last Menstrual Period: 07/28 or 07/29 Hx Now: No - Social History Smoking Status: Never smoker Exposure to second hand smoke: Yes Drug Use: none Patient Lives Alone: No - Social Determinants of Health Will the patient participate in the screening: Declined to provide - Nursing Vital Signs Nursing Vital Signs: Initial Vital Signs Temperature 98.5 F 08/03/24 12:02 Pulse Rate 94 H 08/03/24 12:02 Respiratory Rate 17 08/03/24 12:02 Blood Pressure 149/83 08/03/24 12:02 O2 Sat by Pulse Oximetry 99 08/03/24 12:02 Pain Scale Pain Intensity 0 - Physical Exam General Appearance: no apparent distress Eye Exam: PERRL/EOMI, eyes nml inspection Ears, Nose, Throat Exam: normal ENT inspection, TMs normal Respiratory Exam: normal breath sounds Cardiovascular Exam: regular rate/rhythm Gastrointestinal/Abdomen Exam: soft, normal bowel sounds SpO2: 99 Ordered Tests: Active Orders 24 hr Category Date Time Status CMP Stat Lab 08/03/24 12:38 Completed MAG [MAGNESIUM] Stat Lab 08/03/24 12:38 Completed Lab/Rad Data: Laboratory Result Diagrams 08/03/24 12:38 Laboratory Results 08/03/24 Range/Units 12:38 Sodium 138 (135-145) mmol/L Potassium 3.8 (3.5-5.1) mmol/L Chloride 104 (98-107) mmol/L Carbon Dioxide 27 (22-30) mmol/L Anion Gap 10.6 (5-15) MEQ/L BUN 12 (7-17) mg/dL Creatinine 0.82 (0.52-1.04) mg/dL Estimated GFR 96.2 ML/MIN Glucose 106 (74-106) mg/dL Calcium 8.8 (8.4-10.2) mg/dL Magnesium 2.0 (1.6-2.3) mg/dL Total Bilirubin 0.20 (0.2-1.3) mg/dL AST 34 (14-36) U/L ALT 17 (0-35) U/L Alkaline Phosphatase 61 (38-126) U/L Serum Total Protein 7.4 (6.3-8.2) g/dL Albumin 4.2 (3.5-5.0) g/dL - Progress Progress: improved Progress Note: 08/03/24 13:37Patient was updated with results and informed of the need for follow-up she is to continue to monitor her blood pressure- she feels better and wants to go home Medical Desision Making - Discussion of managment Reviewed:: Need for additional workup Agreed on:: Treatment plan, need for follow-up - Departure Departure Disposition: Home Clinical Impression: Dizziness, Elevated blood pressure reading Condition: Stable Critical Care Time: No Referrals: MERVIN FERRARO MD [Primary Care Provider] - Follow up/PCP as directed
[2024-08-03 12:53] LABS: ALBUMIN 4.2 g/dL (3.5-5.0); ANION GAP 10.6 MEQ/L (5-15); BILIRUBIN,TOTAL 0.2 mg/dL (0.2-1.3); Calcium 8.8 mg/dL (8.4-10.2); Creatinine 1 0.82 mg/dL (0.52-1.04); EST GLOMERULAR FILTRATION RATE 96.2 ML/MIN; Potassium 3.8 mmol/L (3.5-5.1); Total Protein 7.4 g/dL (6.3-8.2)
[2024-08-03 13:42] VITALS: BP 132/72; PULSE 86
== END 2024-08-03 13:48 | disposition home or self-care (01) ==
LOC: ED 12:00
DX: R42 Dizziness and giddiness (principal); R03.0 Elevated blood-pressure reading, without diagnosis of hypertension
CPT/HCPCS: 36415; 80053; 83735; 99282; 99283